=== PATIENT | female | born 1990 | race Caucasian/White ===

== ENCOUNTER 2018-07-02 17:06 | Emergency (ER) | payer OTHER ==
[~2018-07-02] VITALS: Ht 162.6 cm; Wt 63.5 kg
[2018-07-02] MEDS ORDERED: CLEOCIN HCL150 MG PO (17:49)
[2018-07-02 17:54] VITALS: BP 122/57
== END 2018-07-02 17:55 | disposition home or self-care (01) ==
LOC: M.ERS 17:06
DX: K04.7 Periapical abscess without sinus (principal); Z88.0 Allergy status to penicillin

== ENCOUNTER 2019-06-08 23:19 | Emergency (ER) | payer OTHER ==
[~2019-06-08] VITALS: Ht 162.6 cm; Wt 60.2 kg
[~2019-06-08 23:19] MED LIST: CLEOCIN HCL150 MG PO
[2019-06-08 23:24] VITALS: BP 136/81
[2019-06-08] MEDS ORDERED: CLONAZEPAM 0.50.5 M1 PO (23:26)
== END 2019-06-09 00:25 | disposition home or self-care (01) ==
LOC: M.ERS 23:19
DX: S00.83XA Contusion of other part of head, initial encounter (principal); Z88.0 Allergy status to penicillin; Y04.8XXA Assault by other bodily force, initial encounter; Y92.89 Other specified places as the place of occurrence of the external cause; Y93.89 Activity, other specified; Y99.8 Other external cause status